=== PATIENT | female | born 1985 | race Caucasian/White ===

== ENCOUNTER → 2017-01-14 | Outpatient (CLI) | payer OTHER | LOC: FIMAGING 09:22 | PROVIDERS: ATTEND Obstetrics & Gynecology | DX: Z12.39 Encounter for other screening for malignant neoplasm of breast (principal); D24.2 Benign neoplasm of left breast ==

== ENCOUNTER → 2017-10-16 | Outpatient (CLI) | payer OTHER | LOC: FIMAGING 09:18 | PROVIDERS: ATTEND Advanced Practice Midwife | DX: O09.521 Supervision of elderly multigravida, first trimester (principal); Z3A.12 12 weeks gestation of pregnancy ==

== ENCOUNTER → 2017-12-12 | Outpatient (CLI) | payer OTHER | LOC: FIMAGING 09:10 | PROVIDERS: ATTEND Obstetrics & Gynecology | DX: R92.8 Other abnormal and inconclusive findings on diagnostic imaging of breast (principal) ==

== ENCOUNTER → 2017-12-23 | Outpatient (CLI) | payer OTHER | LOC: FIMAGING 12:07 | PROVIDERS: ATTEND Advanced Practice Midwife | DX: O09.522 Supervision of elderly multigravida, second trimester (principal); O36.8290 Fetal anemia and thrombocytopenia, unspecified trimester, not applicable or unspecified; O36.5920 Maternal care for other known or suspected poor fetal growth, second trimester, not applicable or unspecified; Z3A.22 22 weeks gestation of pregnancy ==

== ENCOUNTER → 2017-12-25 | Outpatient (CLI) | payer OTHER | LOC: FIMAGING 14:14 | PROVIDERS: ATTEND Obstetrics & Gynecology | DX: O36.5920 Maternal care for other known or suspected poor fetal growth, second trimester, not applicable or unspecified (principal); Z3A.22 22 weeks gestation of pregnancy ==

== ENCOUNTER → 2018-01-15 | Outpatient (CLI) | payer OTHER | LOC: FIMAGING 09:27 | PROVIDERS: ATTEND Advanced Practice Midwife | DX: O09.522 Supervision of elderly multigravida, second trimester (principal); O36.5920 Maternal care for other known or suspected poor fetal growth, second trimester, not applicable or unspecified; Z3A.25 25 weeks gestation of pregnancy ==

== ENCOUNTER → 2018-01-29 | Outpatient (CLI) | payer OTHER | LOC: FIMAGING 09:24 | PROVIDERS: ATTEND Advanced Practice Midwife | DX: O09.522 Supervision of elderly multigravida, second trimester (principal); Z3A.27 27 weeks gestation of pregnancy ==

== ENCOUNTER → 2018-02-05 | Outpatient (CLI) | payer OTHER | LOC: FIMAGING 08:18 | PROVIDERS: ATTEND Advanced Practice Midwife | DX: O09.523 Supervision of elderly multigravida, third trimester (principal); O36.5930 Maternal care for other known or suspected poor fetal growth, third trimester, not applicable or unspecified; Z3A.28 28 weeks gestation of pregnancy ==

== ENCOUNTER → 2018-02-12 | Outpatient (CLI) | payer OTHER | LOC: FIMAGING 09:09 | PROVIDERS: ATTEND Advanced Practice Midwife | DX: O09.523 Supervision of elderly multigravida, third trimester (principal); O36.5930 Maternal care for other known or suspected poor fetal growth, third trimester, not applicable or unspecified; Z3A.29 29 weeks gestation of pregnancy ==

== ENCOUNTER → 2018-02-19 | Outpatient (CLI) | payer OTHER | LOC: FIMAGING 10:17 | PROVIDERS: ATTEND Advanced Practice Midwife | DX: O36.5930 Maternal care for other known or suspected poor fetal growth, third trimester, not applicable or unspecified (principal); O09.523 Supervision of elderly multigravida, third trimester; Z3A.30 30 weeks gestation of pregnancy ==

== ENCOUNTER → 2018-02-26 | Outpatient (CLI) | payer OTHER | LOC: FIMAGING 08:28 | PROVIDERS: ATTEND Advanced Practice Midwife | DX: O09.523 Supervision of elderly multigravida, third trimester (principal); O36.5930 Maternal care for other known or suspected poor fetal growth, third trimester, not applicable or unspecified; Z3A.31 31 weeks gestation of pregnancy ==

== ENCOUNTER → 2018-03-05 | Outpatient (CLI) | payer OTHER | LOC: FIMAGING 08:10 | PROVIDERS: ATTEND Advanced Practice Midwife | DX: O09.523 Supervision of elderly multigravida, third trimester (principal); O36.5930 Maternal care for other known or suspected poor fetal growth, third trimester, not applicable or unspecified; Z3A.32 32 weeks gestation of pregnancy ==

== ENCOUNTER → 2018-03-19 | Outpatient (CLI) | payer OTHER | LOC: FIMAGING 09:07 | PROVIDERS: ATTEND Advanced Practice Midwife | DX: O09.523 Supervision of elderly multigravida, third trimester (principal); Z3A.34 34 weeks gestation of pregnancy ==

== ENCOUNTER → 2018-03-26 | Outpatient (CLI) | payer OTHER | LOC: FIMAGING 09:26 | PROVIDERS: ATTEND Advanced Practice Midwife | DX: O36.5930 Maternal care for other known or suspected poor fetal growth, third trimester, not applicable or unspecified (principal); O09.523 Supervision of elderly multigravida, third trimester; Z3A.35 35 weeks gestation of pregnancy ==

== ENCOUNTER → 2018-04-02 | Outpatient (CLI) | payer OTHER | LOC: FIMAGING 08:38 | PROVIDERS: ATTEND Advanced Practice Midwife | DX: O09.523 Supervision of elderly multigravida, third trimester (principal); O36.5930 Maternal care for other known or suspected poor fetal growth, third trimester, not applicable or unspecified; Z3A.36 36 weeks gestation of pregnancy ==

== ENCOUNTER 2018-04-10 07:06 | Inpatient (IN) | payer OTHER ==
[2018-04-10] MEDS ORDERED: OXYTOCIN/RINGERS LACTATE 500 ML IV SCH (07:40)
[2018-04-10] MEDS ORDERED: LR 500 ML IV PRN (07:40)
[2018-04-10] MEDS ORDERED: TERBUTALINE SULFATE 1 MG/ML VIAL IV PRN (07:40)
[2018-04-10] MEDS ORDERED: IBUPROFEN 600 MG TAB PO PRN (07:40)
[2018-04-10] MEDS ORDERED: OXYTOCIN/RINGERS LACTATE 1,000 ML IV PRN (07:40)
[2018-04-10] MEDS ORDERED: EPSOM SALT 454 GM TP PRN (07:40)
[2018-04-10] MEDS ORDERED: OLIVE OIL 118 ML BTL MISC PRN (07:40)
[2018-04-10] MEDS ORDERED: LIDOCAINE 1% 300 MG/30 ML SDV SC PRN (07:40)
[2018-04-10] MEDS ORDERED: AMMONIA AROMATIC 1 EACH AMP IH PRN (07:40)
[2018-04-10] MEDS ORDERED: LR 1,000 ML IV PRN (07:40)
[2018-04-10] MEDS ORDERED: MISOPROSTOL 200 MCG TAB PO PRN (07:40)
[2018-04-10] MEDS ORDERED: OXYTOCIN 10 UNIT/ML VIAL ONE (07:55)
[2018-04-10] MEDS ORDERED: AMPICILLIN SODIUM 2 GM in NS 100 ML IV ONE (08:00)
--- NOTE | 2018-04-10 08:00 | PDGENHP ---
History and Physical - Chief Complaint IOL, IUGR - History of Present Illness 33 yo presented at 37w6d today for IOL due to IUGR that we've been following since approximately 20 wks EGA. Growth identified as an issue at 20 wks, saw MFM, NIPT normal, amnio with normal FISH, TORCH serologies negative, no other abnormalities noted. Has been getting consistent growth scans w/ dopplers since that time, and biweekly NSTs with fluid checks as well. Ultimately recommended IOL at 37-38 wks. Did have IUGR with her second child as well. Had a rather traumatic experience with second degree tear with her first - felt like she was pushing too hard and had poorly controlled delivery of head and a lot of issues with pain following that repair. also complicated by AMA and gestational thrombocytopenia. Most recently growth was 35 wks which was 13th percentile, which had been stable in terms of interval growth/trajectory. Dopplers then performed last week 36 wks showed increased resistance in one artery. History Information - Allergies/Home Medication List Allergies/Adverse Reactions: No Known Allergies Allergy (Unverified 06/10/16 13:05) Home Medications: 3 tab PO DAILY 06/10/16 [Last Taken 04/09/18 21:00] Cholecalciferol (Vitamin D3) [Vitamin D3] 1,000 unit PO 04/10/18 [Last Taken 02/20 21:00] Docosahexanoic Acid [Dha] 200 mg PO 04/10/18 [Last Taken 04/09/18 21:00] Lactobacillus Acidophilus [Probiotic] 1 each PO 04/10/18 [Last Taken 04/09/18 21 :00] Sennosides/Docusate Sodium [Stool Softener Tablet] 1 each PO DAILY 04/10/18 [ Last Taken 04/09/18 21:00] I have personally reviewed and updated: family history, medical history, social history, surgical history - Past Medical History no pertinent PMH - Surgical History Reports: no pertinent surgical hx - Social History Smoking Status: Former smoker Review of Systems Review of Systems: ROS: 10pt was reviewed & negative except for what was stated in HPI & below Physical Exam Physical Exam: Constitutional: no apparent distress Lab Data & Imaging Review 04/10/18 08:45 Assessment & Plan Assessment: 33 yo at 37w6d - here for IOL due to IUGR with abnormal dopplers. - Cheng bulb placed yesterday in clinic, fell out last night. - Will start Pit this AM upon arrival, AROM when in a regular pattern. - GBS positive, Ampicillin to start now, Pit in 2 hrs. - NICU to attend delivery due to IUGR. - Plts 124k on arrival, okay for epidural.
[2018-04-10 09:11] LABS: PLATELET COUNT 124 10^3/uL (150-400)
[2018-04-10] MEDS: AMPICILLIN SODIUM 1 GM in NS 100 ML IV SCH ×2 (13:07→17:10)
[2018-04-10] MEDS ORDERED: fentaNYL 200 MCG, BUPIVACAINE 0.5% 20 ML in NS 100 ML EP SCH (14:58)
[2018-04-10] MEDS ORDERED: fentaNYL 2MCG/ML/BUP 0.1% RTU 100 ML EP SCH ×2 (15:00→15:30)
[2018-04-10] MEDS ORDERED: PHENYLEPHRINE HCL 100 MCG/ML SYR IVP PRN (15:21)
[2018-04-10] MEDS ORDERED: ONDANSETRON 4 MG/2 ML VIAL IVP PRN (15:21)
[2018-04-10] MEDS ORDERED: NALOXONE HCL 0.4 MG/ML INJ IVP PRN (15:21)
[2018-04-10] MEDS ORDERED: METOCLOPRAMIDE 10 MG/2 ML VIAL IVP PRN (15:21)
--- NOTE | 2018-04-10 15:21 | PREANESOB ---
Obstetric Pre-Anesthesia Info - General Info Proposed Procedure: Epidural : 3 Para: 2 FRANDY: 04/25/18 Gestational Age: 37 week(s) and 6 day(s) - Labor Status Labor Epidural: Proposed Anesthesia Allergies/Adverse Reactions: Allergy/AdvReac Type Severity Reaction Status Date / Time No Known Allergies Allergy Unverified 06/10/16 13:05 Home Medications: Medication Instructions Recorded 3 tab PO DAILY 06/10/16 Cholecalciferol (Vitamin D3) 1,000 unit PO 04/10/18 [Vitamin D3] Docosahexanoic Acid [Dha] 200 mg PO 04/10/18 Lactobacillus Acidophilus 1 each PO 04/10/18 [Probiotic] Sennosides/Docusate Sodium [Stool 1 each PO DAILY 04/10/18 Softener Tablet] Visit Medications: Generic Name Dose Route Start Last Admin Trade Name Freq PRN Reason Stop Dose Admin Ammonia (Aromatic Spirit) 1 each 04/10/18 07:40 Ammonia Aromatic IH 04/20/18 07:39 ONCE PRN Fainting Lactated Ringer's 500 mls @ 500 mls/hr 04/10/18 07:40 Lr IV 04/10/18 22:09 PRN PRN Maternal Hypotension Lactated Ringer's 1,000 mls @ 0 mls/hr 04/10/18 07:40 04/10/18 08:47 Lr IV 04/11/18 07:39 1,000 mls PRN PRN Administration SEE PROTOCOL CONDITIONS Protocol Per Protocol Oxytocin/Lactated Ringer's 500 mls @ 0 mls/hr 04/10/18 07:40 Pitocin 30 Units/Lr (Premix) IV 10/07/18 07:39 CONT ABHINAV Protocol Per Protocol Oxytocin/Lactated Ringer's 1,000 mls @ 0 mls/hr 04/10/18 07:40 Pitocin 20 Units/Lr (Premix) IV PRN PRN Post bleeding Per Protocol Ampicillin Sodium 1 gm/ Sodium 100 mls @ 200 mls/hr 04/10/18 12:01 04/10/18 13:07 Chloride IV 05/10/18 12:00 100 mls Q4H ABHINAV Administration Protocol Fentanyl 200 mcg/ Bupivacaine 100 mls @ mls/hr 04/10/18 14:58 HCl 20 ml/ Sodium Chloride EP 04/20/18 14:57 CONT ABHINAV As Directed Ibuprofen 600 mg 04/10/18 07:40 Motrin PO ONCE PRN post , pain Lidocaine HCl 300 mg 04/10/18 07:40 Lidocaine Hcl 1% SC 10/07/18 07:39 ONCE PRN episiotomy Magnesium Sulfate 454 gm 04/10/18 07:40 Epsom Salt TP 10/07/18 07:39 Q1H PRN perineal discomfort Misoprostol 800 - 1,000 mcg 04/10/18 07:40 Cytotec PO 10/07/18 07:39 ONCE PRN Vaginal Atony/Bleeding [place] Oil 118 ml 04/10/18 07:40 Sweet Oil MISC 10/07/18 07:39 ONCE PRN perineal massage Terbutaline Sulfate 0.25 mg 04/10/18 07:40 Brethine IV 10/07/18 07:39 ONCE PRN Tachysystole Discontinued Medications Generic Name Dose Route Start Last Admin Trade Name Peñaq PRN Reason Stop Dose Admin Ampicillin Sodium 2 gm/ Sodium 110 mls @ 220 mls/hr 04/10/18 08:00 04/10/18 08:47 Chloride IV 04/10/18 08:29 110 mls ONCE ONE Administration Protocol Fentanyl/Bupivacaine HCl 100 mls @ 0 mls/hr 04/10/18 15:00 Fentanyl/Bupivacaine/Ns 2 Mcg/Ml 0.1% (Premix EP 04/20/18 14:59 CONT ABHINAV As Directed Oxytocin Confirm 04/10/18 07:55 Pitocin Administered 04/10/18 07:56 Dose 10 unit .ROUTE .STK-MED ONE - Vital Signs Height/Weight (Nursing): Height 165.1 cm Weight 72.575 kg - Focused Exam Neck exam: FROM Mallampati Score: Class 2 Mouth exam: normal dental/mouth exam Pulmonary: clear to auscultation Cardiovascular: regular rate and rhythym Labs: 04/10/18 08:45 Patient ABO/Rh A POSITIVE 04/10/18 08:45 - Plan Consent Signed and on Chart: Yes Patient/Guardian Understands and Agrees to Plan: Yes
[2018-04-10] MEDS ORDERED: LR 500 ML IV SCH (15:30)
--- NOTE | 2018-04-10 19:21 | OBDEL ---
Info Type: Vaginal Presentation at Delivery: Vertex L&D Analgesia/Anesthesia Type: Epidural GBS+: Yes Antibiotic Used for + GBS: Ampicillin Intrapartum Medications: Generic Name Dose Route Start Last Admin Trade Name Avelino PRN Reason Stop Dose Admin Lactated Ringer's 1,000 mls @ 0 mls/hr 04/10/18 07:40 04/10/18 08:47 Lr IV 04/11/18 07:39 1,000 mls PRN PRN Administration SEE PROTOCOL CONDITIONS Protocol Per Protocol Discontinued Medications Generic Name Dose Route Start Last Admin Trade Name Avelino PRN Reason Stop Dose Admin Ampicillin Sodium 2 gm/ Sodium 110 mls @ 220 mls/hr 04/10/18 08:00 04/10/18 08:47 Chloride IV 04/10/18 08:29 110 mls ONCE ONE Administration Protocol Ampicillin Sodium 1 gm/ Sodium 100 mls @ 200 mls/hr 04/10/18 12:01 04/10/18 17:10 Chloride IV 05/10/18 12:00 100 mls Q4H ABHINAV Administration Protocol Ibuprofen 600 mg 04/10/18 07:40 04/10/18 18:29 Motrin PO 600 mg ONCE PRN Administration post , pain Indications for Delivery: Growth Restriction w/Abnormal Doppler studies Vaginal Delivery - Delivery Provider Delivery Physician/CNM: Inderjit Paez - Labor and Delivery Onset of Contractions Date: 04/10/18 Onset of Contractions Time: 14:45 Onset of Contractions Type: Augmented Rupture of Membranes Date: 04/10/18 Rupture of Membranes Time: 14:12 Amniotic Fluid Color: Clear Dilation Complete Date: 04/10/18 Dilation Complete Time: 15:48 Placenta Delivery Date: 04/10/18 Placenta Delivery Time: 17:43 Total Hours of Labor: 2 Non-surgical Procedures: Amniotomy Laceration: 1st Degree Repair: 4-0 (Two figure-of eight's), Vicryl Vaginal Sponge Count Correct: Yes Vaginal Needle Count Correct: Yes Vaginal Sweep Performed: Yes EBL: 450cc Delivery Events: None Cord Gases: Not sent - Medications Labor Augmentation/Induction Methods Used: Pitocin Labor Augmentation/Induction Indication: IUGR [place] Data FRANDY: 04/25/18 Gestational Age: 37 week(s) and 6 day(s) [place] Delivery Date: 04/10/18 Delivery Time: 17:36 Sex of : Female [place] Weight (gm): 2388 g Score (1 Min): 8 Score (5 Min): 9 Shoulder Dystocia Time Head Delivered: 17:36 Time Body Delivered: 17:36 ICD10 Worksheet Patient Problems: Problems Problem Status Onset IUGR (intrauterine growth restriction) affecting care of mother Acute (spontaneous vaginal delivery) Acute - ICD10 Problem Qualifiers (1) IUGR (intrauterine growth restriction) affecting care of mother Qualifiers: Fetus number: single or unspecified fetus Trimester: third trimester Qualified Code(s): O36.5930 - Maternal care for other known or suspected poor growth, third trimester, not applicable or unspecified
[2018-04-10] MEDS ORDERED: oxyCODONE IR 5 MG TAB PO PRN (19:22)
[2018-04-10] MEDS ORDERED: HYDROCORTISONE 0.5% CREAM TP PRN (19:22)
[2018-04-10] MEDS ORDERED: SIMETHICONE 80 MG TAB CHEW PO PRN (19:22)
[2018-04-11] MEDS: DOCUSATE SODIUM 100 MG CAP PO PRN ×3 (00:55→19:39)
[2018-04-11] MEDS: IBUPROFEN 600 MG TAB PO SCH ×4 (00:55→19:39)
[2018-04-11] MEDS: ACETAMINOPHEN 325 MG TAB PO SCH ×4 (00:55→19:58)
--- NOTE | 2018-04-11 11:52 | OBPP ---
Progress Note Assessment/Plan: Assessment: [id number] s/p Plan: routine PP care cont support PRN plan d/c home tomorrow 04/11/18 11:46 Subjective/ Course: 04/11/18 11:49 Pt doing well. She is ambulating and voiding without difficulty. She is without difficulty, baby has a good latch. FOB and family at BS and supportive. Objective: 04/11/18 05:26 Patient ABO/Rh A POSITIVE 04/10/18 08:45 Temp Pulse Resp BP Pulse Ox 36.4 C 72 16 102/69 96 04/11/18 07:57 04/11/18 07:57 04/11/18 07:57 04/11/18 07:57 04/11/18 07:57 Uterine Position/Fundal Height: Umbilicus -2, Midline Uterine Tone: Firm Physical Exam - Physical Exam General Appearance: WD/WN, alert, no apparent distress Neck: supple Respiratory: lungs clear, normal breath sounds Cardiac/Chest: regular rate, rhythm Abdomen: non-tender, soft Skin: normal color, warm/dry Neuro/Psych: alert, normal mood/affect, oriented x 3
[2018-04-12] MEDS: ACETAMINOPHEN 325 MG TAB PO SCH ×2 (01:17→08:19)
[2018-04-12] MEDS: IBUPROFEN 600 MG TAB PO SCH ×2 (01:17→08:19)
[2018-04-12] MEDS: DOCUSATE SODIUM 100 MG CAP PO PRN (08:18)
[2018-04-12 10:29] VITALS: BP 107/71
--- NOTE | 2018-04-12 11:51 | OBPP ---
Progress Note Assessment/Plan: Assessment: PPD2 s/p - doing great. Pain controlled, BF going well. Home today - fu 4 and 6 wks. CHAIM Subjective/ Course: Doing great, ready for home. Objective: 04/11/18 05:26 Patient ABO/Rh A POSITIVE 04/10/18 08:45 Temp Pulse Resp BP Pulse Ox 36.9 C 72 16 107/71 94 04/12/18 08:00 04/12/18 08:00 04/12/18 08:00 04/12/18 08:00 04/12/18 08:00 Uterine Position/Fundal Height: At Umbilicus Uterine Tone: Firm
--- NOTE | 2018-04-12 11:51 | OBGCSDC ---
General Delivery Information - General Info : 3 Para: 3 Abortions: 0 Type: Vaginal L&D Analgesia/Anesthesia Type: Epidural Admission Date: 04/10/18 Labs: Patient ABO/Rh A POSITIVE 04/10/18 08:45 Hct 37.9 % (38.0-47.0) L 04/11/18 05:26 - Hospital Course : 04/11/18 11:49 Pt doing well. She is ambulating and voiding without difficulty. She is without difficulty, baby has a good latch. FOB and family at BS and supportive. Vaginal - Delivery Provider Delivery Physician/CNM: Inderjit Paez - Diagnosis Labor: Augmented Amniotic Fluid Color: Clear Laceration: 1st Degree Repair: 4-0 (Two figure-of eight's), Vicryl Delivery Events: None - Procedures Non-surgical Procedures: Amniotomy - Delivery Non-surgical Procedures: Amniotomy EBL: 450cc Data FRANDY: 04/25/18 Gestational Age: 40 week(s) and 6 day(s) Hernandez Delivery Date: 04/10/18 Delivery Time: 17:36 Sex of : Female Weight (gm): 2388 g Score (1 Min): 8 Score (5 Min): 9 Discharge Information - Discharge Information Condition: Good Instruction/Follow Up: See Instruction Sheet, Four Weeks, Six Weeks
== END 2018-04-12 13:45 | disposition home or self-care (01) | DRG 775 ==
LOC: FLD 07:06 → FOB 21:49
PROVIDERS: ADMIT Obstetrics & Gynecology; ATTEND Obstetrics & Gynecology
PROC: 3E033VJ Introduction of Other Hormone into Peripheral Vein, Percutaneous Approach (ICD-10-PCS; principal; 2018-04-10)
PROC: 0HQ9XZZ Repair Perineum Skin, External Approach (ICD-10-PCS; 2018-04-10)
PROC: 10E0XZZ Delivery of Products of Conception, External Approach (ICD-10-PCS; 2018-04-10)
PROC: 10907ZC Drainage of Amniotic Fluid, Therapeutic from Products of Conception, Via Natural or Artificial Opening (ICD-10-PCS; 2018-04-10)
PROC: 3E03329 Introduction of Other Anti-infective into Peripheral Vein, Percutaneous Approach (ICD-10-PCS; 2018-04-10)
DX: O36.5930 Maternal care for other known or suspected poor fetal growth, third trimester, not applicable or unspecified (principal); O70.0 First degree perineal laceration during delivery; Z87.59 Personal history of other complications of pregnancy, childbirth and the puerperium; Z87.891 Personal history of nicotine dependence; Z3A.37 37 weeks gestation of pregnancy; Z37.0 Single live birth
CPT/HCPCS: J0290; J2590; J3010; J3105

== ENCOUNTER → 2018-07-10 | Outpatient (CLI) | payer OTHER | LOC: FIMAGING 09:08 | PROVIDERS: ATTEND Obstetrics & Gynecology | DX: N63.21 Unspecified lump in the left breast, upper outer quadrant (principal) ==